=== PATIENT | male | born 2000 | race Caucasian/White ===

== ENCOUNTER 2019-10-31 20:59 | Emergency (ER) | payer OTHER, SELFPAY ==
[2019-10-31] VITALS (10 sets, daily range): BP systolic 141; BP diastolic 89; PULSE 67–96; RESP 20; TEMP 36.8; O2SAT 98
[2019-10-31] MEDS: Normal Saline Flush 10 ML SYR IVP (22:07)
[2019-10-31] MEDS: Normal Saline 1,000 ML 1000 ML IV (22:07)
[2019-10-31 22:27] LABS: Abs Immature Grans 0.02 k/cumm (0.0-0.09); Absolute Basophil Count 0.01 k/cumm (0.0-0.2); Absolute Eosinophil Count 0.05 k/cumm (0.0-0.7); Absolute Lymphocyte Count 3.68 k/cumm (1.2-3.4); Absolute Monocyte Count 0.88 k/cumm (0.11-0.7); Basophils % 0.1; Eosinophils % 0.6; HCT 45.1 % (40.0-50.0); HGB 16.1 g/dL (13.5-17.5); Immature Grans % 0.2 %; Lymphocytes % 44.1; Mean Corp. HGB Concentration 35.7 g/dL (32.0-36.0); Mean Corpuscular Volume 86.7 fL (80-95); Mean Platelet Volume 11.2 fL (8.0-11.0); Monocytes % 10.6; Neutrophils % 44.4; Platelet Count 203 x1000/uL (130-400); White Blood Cell Count 8.34 k/cumm (4.4-10.8)
[2019-10-31 22:38] LABS: ALT 73 U/L (16-63); AST 39 U/L (15-37); Albumin 4.3 g/dL (3.4-5.0); Alkaline Phosphatase 58 U/L (46-116); Anion Gap 6.5 mmol/L (3-11); BUN 14 mg/dL (7-18); Bilirubin, Total 0.6 mg/dL (0.2-1.0); CO2 31.5 mmol/L (21.0-32.0); CREATININE 0.87 mg/dL (0.70-1.30); Calcium 9.2 mg/dL (8.5-10.1); Chloride 103 mmol/L (98-107); Glucose 91 mg/dL (74-106); Potassium 4.3 mmol/L (3.5-5.1); Sodium 141 mmol/L (136-145); Troponin I < 0.05 ng/Ml (<0.06)
[2019-10-31] MEDS: Omnipaque 350 MG/ML 100 ML BTL IJ (22:40)
--- NOTE | 2019-10-31 22:41 | DI.CT_ITS ---
EXAM: CT CHEST PE CTA CT CHEST PE CTA CLINICAL HISTORY: chest pressure Left, swelling r/o mass chest pressure Left, swelling r/o mass TECHNIQUE: COMPARISON: No exams were available for comparison FINDINGS: CT angiography of the chest of was performed with intravenous infusion of 100 cc of Omnipaque 350. T horacic aorta and major branches are unremarkable. No evidence of pulmonary embolic disease. No med iastinal mass or adenopathy. No hilar adenopathy. No axillary or supraclavicular adenopathy. Lungs are clear. No pleural effusion or pneumothorax. Images obtained through the upper abdomen show unremarkable appearance of visualized portions of live r, spleen, pancreas, adrenals, and kidneys. IMPRESSION: Negative CT angiogram of the chest.
--- NOTE | 2019-10-31 23:45 | DI.VRAD_ITS ---
PROCEDURE INFORMATION: Exam: CT Angiography Chest With Contrast Exam date and time: 10/31/2019 10:41 PM Age: 18 years old Clinical indication: Pain; Chest pressure; Additional info: Left chest pain x a couple months per PT, R/O mass, pe TECHNIQUE: Imaging protocol: Computed tomographic angiography of the chest with intravenous contrast. 3D rendering: MIP and/or 3D reconstructed images were created by the technologist. Radiation optimization: All CT scans at this facility use at least one of these dose optimization techniques: automated exposure control; mA and/or kV adjustment per patient size (includes targeted exams where dose is matched to clinical indication); or iterative reconstruction. Contrast material: [id number]; Contrast volume: 80 ml; Contrast route: IV RT AC 18G; COMPARISON: No relevant prior studies available. FINDINGS: Pulmonary arteries: No pulmonary artery filling defects. Main pulmonary artery normal in caliber. Aorta: No aortic aneurysm or dissection. Lungs: Unremarkable. No consolidation. No masses. Pleural space: Unremarkable. No pneumothorax. No pleural effusion. Heart: Unremarkable. No cardiomegaly. No pericardial effusion. Lymph nodes: No adenopathy. Bones/joints: Unremarkable. No acute fracture. Mild convex right scoliosis of thoracic spine. Soft tissues: Unremarkable. IMPRESSION: No acute findings. Dictated and Authenticated by: Yeyo French MD. Ordering:RASHARD Simms MD
[2019-11-01 00:45] VITALS: BP 141/89; PULSE 84; RESP 20; O2SAT 98
--- NOTE | 2019-11-04 17:05 | W.ED.GENAD ---
Discharge Plan Disposition Patient Disposition: HOME Condition: Good Discharge Details Chief Complaint: Chest Pain Clinical Impression: Scoliosis Primary Care Provider: Rom Alfonso ED Provider: Demi Garcia Home Meds and New Rx's Prescriptions: No Action No Known Home Meds RF: 0 Discharge Instructions Additional Instructions: Please follow-up with your primary care doctor next week. Rest activities as tolerated. Observe for any alarming symptoms, worsening or concerns sooner if needed. Your evaluation today is unremarkable for any acute intrathoracic emergencies. Scoliosis noted of your spine. Please follow-up with your primary care doctor for this finding. Return for any worsening, concerns or alarming symptoms sooner if needed Discharge Data Discharge Date/Time-TO BE ENTERED AT DEPARTURE: 11/01/19 00:50 Medical Decision Making Is a 18-year-old patient with no significant medical history presenting for complaints of left sided chest pressure which radiates toward his left back. Patient reports an associated tingling in the left forearm extending to his digits but not involving the neck, shoulder or upper left arm. Patient denies difficulty breathing or wheezing. Patient does report occasional dyspnea on exertion. Denies palpitations. Denies significant cough. Patient reports a fullness sensation of the left chest and the left shoulder. Patient reports symptoms have been persistent for approximately 2 months no significant escalation. Patient made his mother aware of these symptoms today which is what prompted their evaluation to the emergency room. Patient has continued to undergo his normal daily activities. Patient was able to lift weights this week. Patient denies any specific injury or trauma. Denies abdominal pain, nausea, vomiting. Eating and drink without difficulty. EKG ordered, labs ordered as well as CT chest to rule out pulmonary embolism or mass. Patient agrees with plan of care. Patient's initial vital signs reviewed mild hypertension 141/89 mild tachycardia with a heart rate of 96. O2 sat is normal, no tachypnea. Afebrile. Initial EKG reveals sinus rhythm with a heart rate of 91. No ST segment changes. Intervals normal. Reviewed with Dr. Amato Labs reveal no leukocytosis. CMP reveals very minimal elevation of AST and ALT. Troponin is negative. CT chest reveals FINDINGS: Pulmonary arteries: No pulmonary artery filling defects. Main pulmonary artery normal in caliber. Aorta: No aortic aneurysm or dissection. Lungs: Unremarkable. No consolidation. No masses. Pleural space: Unremarkable. No pneumothorax. No pleural effusion. Heart: Unremarkable. No cardiomegaly. No pericardial effusion. Lymph nodes: No adenopathy. Bones/joints: Unremarkable. No acute fracture. Mild convex right scoliosis of thoracic spine. Soft tissues: Unremarkable. IMPRESSION: No acute findings. Patient's vital signs remained stable. Patient's labs are unremarkable. Patient's EKG reveal no significant ST segment changes. Patient CT does reveal convex right scoliosis, this finding is mild however on examination of the patient he does have obvious asymmetry through his back and shoulder blades possibly attributing to the asymmetry he is noting anteriorly. This was discussed with the patient. Recommended follow-up with his doctor for reevaluation. Nothing to indicate an acute cardiothoracic emergency tonight. Symptoms have been ongoing for the last several months. I recommended this patient follow-up with his PCP promptly for reevaluation. Patient agrees with plan of care. Mother at the bedside agrees with plan of care. Discussed the use of [id number] NSAIDs as patient does have mildly reproducible pain with palpation of the left anterior chest possibly related to chest wall pain. The patient was stable and requested discharge. Prior to discharge, my usual and customary return precautions were reviewed with the patient - this included follow-up instructions and reasons to return to the Emergency Department if conditions worsens, does not improve as expected, or other new concerns arise. HPI General Date/Time Provider Initiated Documentation: 10/31/19 21:37. HPI Narrative: Is a 18-year-old patient presenting to the emergency room for complaints of 2 months of left sided anterior chest pressure. Patient reports a sensation of fullness in his left chest. Patient does report occasional pain in his chest. Patient does report radiating symptoms toward his back or shoulder blade. Patient feels the left anterior portion of his chest is more swollen and asymmetric compared to the right. Patient complains of an abnormal feeling with range of motion of the left shoulder. Patient denies any radiating symptoms into the shoulder however does report forearm numbness extending from the forearm toward the fingertips of the fourth and fifth digit. Patient denies obvious swelling of the left arm. Patient denies cough. Denies obvious dyspnea on exertion. Patient did lift weights a few days ago without difficulty. Patient currently smokes tobacco as well as marijuana. Denies vaping. Patient reported these symptoms to his mother today for the first time which is what prompted his evaluation in the emergency room although patient has been quite anxious about the noted pressure in the left chest for several months. Patient denies any obvious injury or trauma. Denies headache or dizziness. Denies any other concerns or complaints. Denies upper respiratory symptoms. Denies abdominal pain. Eating and drinking without difficulty. Related Data Home Medications Medication Instructions Recorded Confirmed Unknown [No Known Home Meds] 12/17/12 10/31/19 Allergies Allergy/AdvReac Type Severity Reaction Status Date / Time No Known Allergies Allergy Unverified 10/31/19 21:05 General Stated Complaint: Chest Pain DARREN: 3 Review of Systems All systems reviewed & are unremarkable except as noted in HPI and below Constitutional Constitutional: Denies chills, Denies fatigue, Denies fever(s), Denies headache(s) and Denies malaise ENT Ears, Nose, Mouth, and Throat: Denies headache(s), Denies nasal congestion, Denies nasal discharge, Denies neck pain and Denies sore throat Cardiovascular Cardiovascular: Reports chest pain, Denies diaphoresis, Denies syncope, Denies lightheadedness, Denies radiating jaw, neck or arm pain, Denies palpitations, Denies dyspnea and Denies dyspnea on exertion Respiratory Respiratory: Denies cough, Denies dyspnea, Denies dyspnea on exertion and Denies wheezing Gastrointestinal Gastrointestinal: Denies abdominal pain, Denies nausea and Denies vomiting Musculoskeletal Musculoskeletal: Denies neck pain Neurologic Neurologic: Denies syncope and Denies headache(s) Endocrine Endocrine: Denies fatigue and Denies palpitations Allergic/Immunologic Allergic/Immunologic: Denies wheezing FOR[facility]LY [facility], [facility] Medical History Closed fracture carpal bone Social History Smoking/Tobacco Use Status: Current every day Tobacco Type: smokeless tobacco Alcohol Intake: current Alcohol Intake frequency: a few times a month Drug use: Daily Substance use type: marijuana Do you feel safe at home: Yes Do you feel safe in your relationship?: Yes Exam Narrative Exam Narrative: CONST: Healthy appearing patient, in no acute distress. Well hydrated. Alert and oriented. HENMT: Head nomocephalic, normal to inspection. Atraumatic. Hearing grossly normal. TMs appear normal bilaterally. No pharyngeal erythema. EYES: General normal appearance. Alignment normal. Eyelids normal. Conjunctiva normal. NECK: Normal visual inspection. FROM. Trachea midline. No Midline tenderness. No cervical lymphadenopathy CHEST: Normal insepection of the chest. Patient points to the left tail of his breast as area he feels is swollen. Very minimal asymmetry is conceivable at this area compared to the right. Mild pain with palpation of the left anterior chest, somewhat reproducible. RESP: Normal respiratory effort. Speaking full sentences. No cough. No audible wheezing. No retractions. Breath sounds are clear, full and equal bilaterally. No wheezing, rhonchi or rales. CARDIO: No JVD. No murmur. Regular rate and rhythm MUSCULOSKELETAL: Normal Gait. FROM of all extremities. No limited range of motion of left arm. Full range of motion overhead. Strength intact. No obvious pain with palpation through the left humerus, elbow or forearm. [employer] strength is intact. Sensation intact. Pulses intact. No obvious swelling of the left arm. SKIN: Normal. Dry. No rashes. NEURO: Alert and awake. Speech clear. PSYCH: Anxious affect. Cooperative. Course Vital Signs Vital signs: Vital Signs Temperature 36.8 C 10/31/19 21:04 Pulse 96 H 10/31/19 21:04 Respiratory Rate 20 10/31/19 21:04 Blood Pressure 141/89 H 10/31/19 21:04 Pulse Oximetry 98 10/31/19 21:04 Temperature 36.8 C 10/31/19 21:04 Temperature Source Temporal Artery Scan 10/31/19 21:04 Pulse 84 11/01/19 00:45 Pulse 67 10/31/19 22:20 Respiratory Rate 20 11/01/19 00:45 Respiratory Effort Non-Labored 10/31/19 21:06 Respiratory Depth Normal 10/31/19 21:06 Respiratory Pattern Normal 10/31/19 21:06 Blood Pressure 141/89 H 11/01/19 00:45 Pulse Oximetry 98 11/01/19 00:45 Oxygen Delivery Method Room Air 10/31/19 21:04 Oxygen Flow Rate 0 10/31/19 21:04 Pain Level 0 11/01/19 00:45 Lab/Test Results Lab/Test Results: Laboratory Tests Range/Units 10/31/19 10/31/19 22:15 22:15 WBC (4.4-10.8) k/cumm 8.34 RBC (4.50-6.00) m/cumm 5.20 Hgb (13.5-17.5) g/dL 16.1 Hct (40.0-50.0) % 45.1 MCV (80-95) fL 86.7 MCH (27.0-33.0) pg 31.0 MCHC (32.0-36.0) g/dL 35.7 RDW (11.8-14.1) % 12.0 Plt Count (130-400) x1000/uL 203 MPV (8.0-11.0) fL 11.2 H Immature Gran % % 0.2 Neutrophils % 44.4 Lymphocytes % 44.1 Monocytes % 10.6 Eosinophils % 0.6 Basophils % 0.1 Absolute Neutrophils (1.2-6.7) k/cumm 3.70 Absolute Lymphocytes (1.2-3.4) k/cumm 3.68 H Absolute Monocytes (0.11-0.7) k/cumm 0.88 H Absolute Eosinophils (0.0-0.7) k/cumm 0.05 Absolute Basophils (0.0-0.2) k/cumm 0.01 Sodium (136-145) mmol/L 141 Potassium (3.5-5.1) mmol/L 4.3 Chloride (98-107) mmol/L 103 Carbon Dioxide (21.0-32.0) mmol/L 31.5 Anion Gap (3-11) mmol/L 6.5 BUN (7-18) mg/dL 14 Creatinine (0.70-1.30) mg/dL 0.87 Estimated GFR/1.73 m2 (mL/min/1.73m2) >= 60.00 Glucose (74-106) mg/dL 91 Calcium (8.5-10.1) mg/dL 9.2 Total Bilirubin (0.2-1.0) mg/dL 0.6 AST (15-37) U/L 39 H ALT (16-63) U/L 73 H Alkaline Phosphatase (46-116) U/L 58 Troponin I (<0.06) ng/Ml < 0.05 Total Protein (6.4-8.2) g/dL 7.0 Albumin (3.4-5.0) g/dL 4.3
== END 2019-11-01 00:50 | disposition home or self-care (01) ==
PROVIDERS: Emergency Provider Physician Assistant; PCP Internal Medicine
DX: R07.9 Chest pain, unspecified (principal); R20.2 Paresthesia of skin; M41.9 Scoliosis, unspecified; R03.0 Elevated blood-pressure reading, without diagnosis of hypertension
CPT/HCPCS: 36415; 71275; 80053; 93005; 96360; 99285; 84484; 85025; 93010; 99284; J3490

== ENCOUNTER 2019-11-06 15:42 | Outpatient (CLI) | payer OTHER, SELFPAY ==
[2019-11-06 17:21] LABS: C-Reactive Protein 0.06 mg/dL (0.0-0.3); Creatine Kinase 238 U/L (39-308)
[2019-11-06 18:48] LABS: ESR 0 mm/hr (0-15)
[2019-11-08 13:55] LABS: ANA Interpretation Negative (Negative)
[2019-11-08 15:05] LABS: Aldolase 7.3 U/L (<7.7)
== END 2019-11-06 16:02 ==
PROVIDERS: PCP Internal Medicine; Visit Provider Nurse Practitioner Adult Health
DX: M19.90 Unspecified osteoarthritis, unspecified site (principal)
CPT/HCPCS: 36415; 82550; 85652; 82085; 86038; 86140; 86431

== ENCOUNTER 2020-05-14 09:34 | Outpatient (REF) | payer OTHER, SELFPAY ==
[2020-05-14 20:57] LABS: ALT 59 U/L (16-63); AST 45 U/L (15-37); Albumin 4.3 g/dL (3.4-5.0); Alkaline Phosphatase 60 U/L (46-116); Bilirubin, Direct 0.16 mg/dL (0.00-0.20); Bilirubin, Total 0.8 mg/dL (0.2-1.0); Total Protein 7.1 g/dL (6.4-8.2)
== END 2020-05-14 09:54 ==
LOC: NCHCN 09:34
PROVIDERS: PCP Internal Medicine; Visit Provider Internal Medicine
DX: R94.5 Abnormal results of liver function studies (principal)
CPT/HCPCS: 80076

== ENCOUNTER 2022-03-21 12:29 | Outpatient (CLI) | payer OTHER, SELFPAY ==
--- NOTE | 2022-03-21 | DI.RAD_ITS ---
Exam(s) XR CHEST 2V PA LATERAL EXAM: XR CHEST 2V PA LATERAL CLINICAL HISTORY: Acute Upper Respiratory Infectoin--J06.9 TECHNIQUE: 2D digital imaging was performed. COMPARISON: CR RIGHT RIBS TO INCLUDE CXR from 11/17/2010 FINDINGS: MEDIASTINUM: Normal. HEART: Normal. PULMONARY VASCULATURE: Normal. LUNGS: Clear. PLEURAL SPACE: No pleural effusion or pneumothorax. BONE:Unremarkable for age. IMPRESSION: No acute abnormality. DATA REPOSITORY: RADIATION DOSE DELIVERED:
== END 2022-03-21 12:49 ==
LOC: DI 12:32
PROVIDERS: PCP Internal Medicine; Visit Provider Nurse Practitioner Family
DX: J06.9 Acute upper respiratory infection, unspecified (principal)
CPT/HCPCS: 71046

== ENCOUNTER 2022-11-16 10:22 | Emergency (ER) | payer SELFPAY ==
[2022-11-16] VITALS (10 sets, daily range): BP systolic 128–143; BP diastolic 54–73; PULSE 75–85; RESP 20; TEMP 37.1; O2SAT 96–100
--- NOTE | 2022-11-16 10:47 | ED.GENADUL_ITS ---
Discharge Plan Disposition Patient Disposition: Home Condition: Stable Discharge Details Clinical Impression: Nausea vomiting and diarrhea Primary Care Provider: Rom Alfonso ED Provider: Leandra Mackey Home Meds and New Rx's Prescriptions: New ondansetron 4 mg tablet,disintegrating 4 mg PO DAILY 3 Days Qty: 10 0RF Discharge Instructions Instructions: Acute Nausea and Vomiting (ED) Additional Instructions: take zofran as needed for nausea and vomiting clear liquid diet as tolerated bland diet, toast, applesauce, bananas as tolerated return with new, worsening, or persistent complaints Stand Alone Forms: Work Release Referrals: Rom Alfonso MD [Primary Care Provider] - Discharge Data Discharge Date/Time-TO BE ENTERED AT DEPARTURE: 11/16/22 11:58 Medical Decision Making This 21-year-old male presents with nausea vomiting and diarrhea, hot flashes, diaphoresis, abdominal pain. Male states he is unsure as to whether or not this may have precipitated by food or illness Feeling marked improvement after antiemetics, fluids, and able to tolerate p.o. Abdominal exam benign, given antiemetics for home, diet recommendations reviewed Return precautions reviewed Leukocytosis noted, abdominal exam benign on reevaluation, will hold off on imaging at this time Given low threshold to return with new or worsening complaints No focal tenderness on abdominal exam Recheck of labs at patient recommended in the next week HPI General Date/Time Provider Initiated Documentation: 11/16/22 10:25 . HPI Narrative: This 21 yo male presents with n/v/d starting st 2100 last evening. covid dx 3 weeks ago with resolution of symptoms reportedly. denies fever or chill. sick contacts with similar sx at work reportedly. denies blood in vomiting. Related Data Home Medications Medication Instructions Recorded Confirmed ondansetron 4 mg disintegrating 4 mg PO DAILY 3 days #10 tabs 11/16/22 tablet Previous Rx's Medication Instructions Recorded ondansetron 4 mg disintegrating 4 mg PO DAILY 3 days #10 tabs 11/16/22 tablet Allergies Allergy/AdvReac Type Severity Reaction Status Date / Time No Known Allergies Allergy Unverified 11/16/22 11:10 General Stated Complaint: Abd Prob DARREN: 3 PFSH All Active Problems (Updated 11/16/22 @ 11:38 by YI Plummer) Nausea vomiting and diarrhea (Acute) Swelling of joint, shoulder, left (Acute) Cubital tunnel syndrome on left (Acute) Left carpal tunnel syndrome (Acute) Medical History (Updated 11/16/22 @ 11:38 by YI Plummer) Abnormal liver function Brachial plexopathy Neuropathy Situational depression Urticaria, idiopathic Surgical History Tonsillectomy and adenoidectomy 2008? Social History (Updated 12/03/19 @ 13:49 by Tawny Ghotra LPN) Smoking/Tobacco Use Status: Current every day Smoking risk assessment performed?: Yes Alcohol Intake: current Alcohol Intake frequency: a few times a month Drug use: Daily Substance use type: marijuana Do you feel safe at home: Yes Do you feel safe in your relationship?: Yes Exam Const General: cooperative Other: pallor HENMT Other: moist mucous membranes Eyes Sclera: sclerae normal Resp Effort & Inspection: normal respiratory effort Auscultation: clear to auscultation bilaterally Cardio Rate: regular rate Rhythm: regular rhythm GI Other: non-tender abdominal exam Skin General skin exam: no rashes or lesions noted Neuro General: patient alert and patient oriented x3 Course Vital Signs Vital signs: Vital Signs Temperature 37.1 C 11/16/22 10:36 Pulse 80 11/16/22 10:36 Respiratory Rate 20 11/16/22 10:36 Blood Pressure 143/7 H 11/16/22 10:36 Pulse Oximetry 97 11/16/22 10:36 Temperature 37.1 C 11/16/22 10:36 Temperature Source Oral 11/16/22 10:36 Pulse 80 11/16/22 10:36 Respiratory Rate 20 11/16/22 10:36 Blood Pressure 143/7 H 11/16/22 10:36 Blood Pressure Position Sitting 11/16/22 10:36 Pulse Oximetry 97 11/16/22 10:36 Oxygen Delivery Method Room Air 11/16/22 10:36 Oxygen Flow Rate 0 11/16/22 10:36
[2022-11-16] MEDS: Ketorolac 15 MG/ML VIAL IVP (10:54)
[2022-11-16] MEDS: Lactated Ringers 1,000 ML 1000 ML IV (10:54)
[2022-11-16] MEDS: Ondansetron 4 MG/2 ML VIAL IVP (10:54)
[2022-11-16 11:11] LABS: Abs Immature Grans 0.06 10^3/uL (0.0-0.06); Basophils % 0.2; Eosinophils % 0.1; HCT 47.2 % (40.0-50.0); HGB 16.8 g/dL (13.5-17.5); Immature Grans % 0.3; Lymphocytes % 4.1; MCH 31.2 pg (27.0-33.0); MCHC 35.6 % (32.0-36.0); MCV 88 fL (80-95); Monocytes % 5.7; Neutrophils % 89.6; Platelet Count 202 10^3/uL (130-400); RBC 5.39 10^6/uL (4.36-5.78); RDW-SD 38.3 fL; WBC 19.74 10^3/uL (4.4-10.8)
[2022-11-16 11:12] LABS: Absolute Basophil Count 0.04 10^3/uL (0.0-0.2); Absolute Eosinophil Count 0.02 10^3/uL (0.0-0.7); Absolute Lymphocyte Count 0.81 10^3/uL (1.2-3.4); Absolute Monocyte Count 1.13 10^3/uL (0.1-0.8); Absolute Neutrophil Count 17.69 10^3/uL (1.2-6.7)
[2022-11-16 11:19] LABS: Mono Screening Negative (Negative)
[2022-11-16 11:25] LABS: ALT 56 U/L (16-63); AST 37 U/L (15-37); Albumin 4.6 g/dL (3.4-5.0); Alkaline Phosphatase 77 U/L (46-116); BUN 11 mg/dL (7-18); Calcium 9.4 mg/dL (8.5-10.1); Chloride 104 mmol/L (98-107); Estimated GFR 109.13 (mL/min/1.73m2); Glucose 130 mg/dL (74-106); Potassium 3.9 mmol/L (3.5-5.1); Sodium 141 mmol/L (136-145); Total Protein 7.8 g/dL (6.4-8.2)
[2022-11-16] MEDS: Ondansetron O.D.T. 4 MG TABEF, 3 TABS/BTL PO (11:51)
== END 2022-11-16 11:58 | disposition home or self-care (01) ==
PROVIDERS: Emergency Provider Physician Assistant; PCP Internal Medicine
DX: R11.2 Nausea with vomiting, unspecified (principal); R19.7 Diarrhea, unspecified; D72.829 Elevated white blood cell count, unspecified; R61 Generalized hyperhidrosis; R10.9 Unspecified abdominal pain; Z86.16 Personal history of COVID-19
CPT/HCPCS: 36415; 80053; 96361; 96374; 96375; 99284; 85025; 86308; J1885; J2405